=== PATIENT | female | born 1995 | race Caucasian/White ===

== ENCOUNTER 2017-03-14 14:53 | Emergency (ER) | payer OTHER, SELFPAY ==
[~2017-03-14] VITALS: Ht 177.8 cm; Wt 81.2 kg
[2017-03-14] MEDS ORDERED: [UNRECOGNIZED DRUG - OTHER] XX (16:44)
[2017-03-14 17:32] VITALS: BP 119/67
== END 2017-03-14 17:33 | disposition home or self-care (01) ==
LOC: M ED 16:31
DX: O99.89 Other specified diseases and conditions complicating pregnancy, childbirth and the puerperium (principal); M54.32 Sciatica, left side; Z76.0 Encounter for issue of repeat prescription; Z3A.27 27 weeks gestation of pregnancy

== ENCOUNTER 2017-05-10 09:17 | Outpatient (CLI) | payer OTHER ==
[~2017-05-10] VITALS: Ht 170.2 cm; Wt 99.0 kg
[~2017-05-10 09:17] MED LIST: [UNRECOGNIZED DRUG - OTHER] XX
[2017-05-10 09:32] VITALS: BP 139/80
[2017-05-10] MEDS ORDERED: PRENTAB9 PO (09:33)
[2017-05-10] MEDS ORDERED: VITA500C10 PO (09:35)
[2017-05-10] MEDS ORDERED: FERR325T3 PO (09:35)
[2017-05-10] MEDS ORDERED: LR 1,000 ML IV ONE (11:00)
[2017-05-10] MEDS ORDERED: LR 1,000 ML IV SCH (11:00)
[2017-05-10 11:21] VITALS: BP 165/85
[2017-05-10 11:23] VITALS: BP 134/69
[2017-05-10 11:32] LABS: BASO % 0.1 % (0.0-1.0); EOS % 0.3 % (0.0-3.0); LARGE UNSTAINED CELL # 0.1 K/mm3 (0.0-0.4); LARGE UNSTAINED CELL % 0.6 % (0.0-4.0); LYMPH # 1.1 K/mm3 (1.5-6.5); LYMPH % 10.8 % (24.0-44.0); MEAN CORPUSCULAR HEMOGLOBIN 33.6 pg (27.0-33.0); MEAN CORPUSCULAR HGB CONC 35.9 g/dl (32.0-36.5); MEAN CORPUSCULAR VOLUME 93.4 fl (80.0-96.0); MONO # 0.3 K/mm3 (0.0-0.8); MONO % 3.4 % (0.0-5.0); NEUTROPHILS # 8.2 K/mm3 (1.8-7.7); NEUTROPHILS % 84.7 % (36.0-66.0); PLATELET COUNT, AUTOMATED 198 k/mm3 (150-450); RED CELL DISTRIBUTION WIDTH 12.4 % (11.5-14.5); WHITE BLOOD COUNT 9.6 K/mm3 (4.0-10.0)
[2017-05-10 12:49] VITALS: BP 136/76
[2017-05-10] MEDS ORDERED: KEFL250C6 PO (12:50)
[2017-05-10] MEDS ORDERED: CEPHALEXIN 250 MG CAP PO SCH (13:00)
--- NOTE | 2017-05-10 13:18 | IPNPDOC ---
Text Note Date of Service The patient was seen on 05/10/17 1230. NOTE Subjective: Patient is a 21 year old female who is a who is 35.4 weeks gestation with an ALIREZA of 06/10/17 based off of a 2nd trimester ultrasound. Patient receives care in [place]. Her has been complicated by being late to care at 24 wks gestation. She presents to Labor and delivery today with complaints of bleeding. She was seen at [facility] last night for the same reason. She had an ultrasound last night that showed a closed cervix measuring 2.9 cm with no placental abruption. She received a dose of betamethasone and rhogam there. They diagnosed her with bacterial vaginitis and gave her Flagyl. Patient reports she has not picked up her antibiotic yet. She states that she had an episode of bleeding this morning that was red when she wiped that was thick and mixed with mucus. She denies any bright red vaginal bleeding currently but reports some pink discharge when she wipes. States that bleeding is not any heavier than it was last night. Bleeding occurred after intercourse. Reports decreased movement this morning. Currently denies this. Denies leaking fluid. Objective: FHR: 130, moderate variability, no decelerations, positive 15x15 accelerations. Contractions: occasional. Abdomen: gravid; palpates soft with no tenderness. Respiratory: regular rate. No use of accessory muscles. Extremities : generalized edema with no pitting. Vital signs: see below. Laboratory tests: see below. Assessment: IUP at 35.4 weeks gestation, post-coital bleeding in , not in labor, urinary tract infection Plan: Patient to be discharge to home. She received IV hydration while being in department and a dose of Ancef. Urine culture sent. Keflex sent to pharmacy. Patient to take 250 mg PO every 6 hours for 7 days. Encouraged to take prescribed medication for bacterial vaginitis. Saline lock to be removed. Encouraged pelvic rest at this point. Education done with patient to call provider with heavy bleeding like the first day of menses, decreased movement (less than 10 movements in 2 hours), leaking of fluid, or labor symptoms. Patient has appointment tomorrow in [place] with providers that she was encouraged to go to. Plan of care and laboratory tests reviewed with Dr. Jones. Sadie AYALA, I+O VS, Fishbone, I+O Laboratory Tests 05/10/17 11:18: White Blood Count 9.6, Red Blood Count 3.69L, Hemoglobin 12.4, Hematocrit 34.5L , Mean Corpuscular Volume 93.4, Mean Corpuscular Hemoglobin 33.6H, Mean Corpuscular Hemoglobin Concent 35.9, Red Cell Distribution Width 12.4, Platelet Count 198, Neutrophils (%) (Auto) 84.7H, Lymphocytes (%) (Auto) 10.8L, Monocytes (%) (Auto) 3.4, Eosinophils (%) (Auto) 0.3, Basophils (%) (Auto) 0.1, Neutrophils # (Auto) 8.2H, Lymphocytes # (Auto) 1.1L, Monocytes # (Auto) 0.3, Eosinophils # (Auto) 0.0, Basophils # (Auto) 0.0, Large Unclassified Cells % 0.6 , Large Unclassified Cells # 0.1, Urine Appearance HAZY, Urine Color YELLOW, Urine pH 5.0, Urine Specific [place] 1.017, Urine Protein NEGATIVE, Urine Glucose (UA) 1+H, Urine Ketones 2+H, Urine Urobilinogen 0.2, Urine Bilirubin NEGATIVE, Urine Leukocyte Esterase 2+H, Urine Blood 3+H, Urine Nitrite NEGATIVE, Urine WBC (Auto) 8H, Urine RBC (Auto) 2, Urine Hyaline Casts (Auto) 0, Urine Bacteria (Auto) NEGATIVE, Urine Squamous Epithelial Cells 10, Urine Mucus (Auto) SMALL, Urine Sperm (Auto) Microbiology 05/10/17 Urine Culture, Received Pending Laboratory Tests 05/10/17 11:18 Red Blood Count 3.69 L, Mean Corpuscular Volume 93.4, Mean Corpuscular Hemoglobin 33.6 H, Mean Corpuscular Hemoglobin Concent 35.9, Red Cell Distribution Width 12.4, Neutrophils (%) (Auto) 84.7 H, Lymphocytes (%) (Auto) 10.8 L, Monocytes (%) (Auto) 3.4, Eosinophils (%) (Auto) 0.3, Basophils (%) ( Auto) 0.1, Neutrophils # (Auto) 8.2 H, Lymphocytes # (Auto) 1.1 L, Monocytes # ( Auto) 0.3, Eosinophils # (Auto) 0.0, Basophils # (Auto) 0.0 Vital Signs Date Time Temp Pulse Resp B/P (MAP) Pulse Ox O2 Delivery O2 Flow Rate FiO2 05/10/17 11:23 102 18 134/69 (90) 05/10/17 09:32 97.9 MELVIN DEL ANGEL CNM May 10, 2017 13:18
== END 2017-05-10 13:05 | disposition home or self-care (01) ==
LOC: M LDO 09:17
PROVIDERS: ATTEND Obstetrics & Gynecology
DX: O26.853 Spotting complicating pregnancy, third trimester (principal); O23.43 Unspecified infection of urinary tract in pregnancy, third trimester; O09.293 Supervision of pregnancy with other poor reproductive or obstetric history, third trimester; Z3A.35 35 weeks gestation of pregnancy
CPT/HCPCS: 59025; 81001; 85025; 87088; 87186; 96365; 96366; J0690

== ENCOUNTER 2018-04-08 17:41 | Emergency (ER) | payer OTHER, SELFPAY ==
[2018-04-08] MEDS: ADACEL/BOOSTRIX VACCINE (DIPHTH/PERTUSS/ACELL/TETANUS)0.5ML SYR (90715) IM ×2 (18:58)
[2018-04-08] MEDS: LIDOCAINE 2% MDV 20 ML VIAL SC ×2 (19:56)
== END 2018-04-08 21:05 | disposition home or self-care (01) ==
LOC: M ED 17:41
DX: S91.111A Laceration without foreign body of right great toe without damage to nail, initial encounter (principal); S92.421A Displaced fracture of distal phalanx of right great toe, initial encounter for closed fracture; W28.XXXA Contact with powered lawn mower, initial encounter; Y92.009 Unspecified place in unspecified non-institutional (private) residence as the place of occurrence of the external cause; Z91.040 Latex allergy status
CPT/HCPCS: 90715

== ENCOUNTER → 2019-11-01 | Outpatient (CLI) | payer OTHER ==
[~2019-11-01] MED LIST changes: +ACET-716 PO; +AUGM500T34 PO; +FERR325T3 PO; +KEFL250C11 PO; +PRENTAB9 PO; +VITA500C10 PO
--- NOTE | 2019-11-01 17:16 | REP ---
DIAGNOSTIC MAMMOGRAM RIGHT BREAST WITH RIGHT BREAST ULTRASOUND: No family history of breast cancer. Tyrer-zick lifetime risk of breast cancer 9.8%. HISTORY: Palpable lump 12 o'clock right breast. No comparison study. The palpable lump is marked on the skin with a triangular marker. Mammography of the right breast is performed in the MLO, ML and CC projections. There is moderately dense heterogenous fibroglandular tissue present in the right breast. No mass or clustered microcalcifications are seen. Real-time sonographic evaluation of the right breast was performed at the site of the palpable lump at 12 o'clock. At this location there is a superficial subcutaneous hypoechoic area measuring 7 x 3 x 7 mm. Skin discoloration is noted at this location. IMPRESSION: ACR 3 probably benign. At the site of the palpable lump in the region of 12 to 1 o'clock right breast no mammographic abnormality is seen. By ultrasound there is a superficial oval hypoechoic nodule with enhanced through transmission probably representing a sebaceous cyst with a maximum diameter of 7 mm. There is overlying skin discoloration. Recommend followup ultrasound in 6 months. BIRADS 3: BI-RADS/ACR category 3 mammogram. Probably Benign Findings. This mammogram was interpreted with the aid of an FDA-approved computer-aided detection system. The patient states she had a clinical breast exam in 10/2019. The patient letter being requested is M3. Electronically Signed by Kashif Graham MD 11/01/2019 06:13 P
== END ==
LOC: M RAD 14:17
PROVIDERS: ATTEND Family Medicine
DX: R22.9 Localized swelling, mass and lump, unspecified (principal)

== ENCOUNTER 2019-11-28 22:10 | Emergency (ER) | payer OTHER ==
[~2019-11-28] VITALS: Ht 175.3 cm; Wt 88.0 kg
[2019-11-28] MEDS ORDERED: ACETAMINOPHEN 325 MG TAB PO ONE (22:30)
[2019-11-28 23:11] LABS: INFLUENZA A AMPLIFICATION NEGATIVE (NEGATIVE); INFLUENZA B AMPLIFICATION POSITIVE (NEGATIVE)
[2019-11-28] MEDS ORDERED: OSEL75CA PO (23:37)
[2019-11-28] MEDS ORDERED: BENZ200C70 PO (23:40)
[2019-11-28] MEDS ORDERED: OSELTAMIVIR PHOSPHATE 75 MG CAP (TAMIFLU) PO ONE (23:45)
[2019-11-29 00:01] VITALS: BP 128/68
== END 2019-11-29 00:03 | disposition home or self-care (01) ==
LOC: M ED 22:10
DX: J10.1 Influenza due to other identified influenza virus with other respiratory manifestations (principal); Z91.040 Latex allergy status

== ENCOUNTER → 2020-10-13 | Outpatient (CLI) | payer SELFPAY ==
[~2020-10-13] MED LIST changes: +BENZ200C70 PO; +OSEL75CA PO
== END ==
LOC: M LABSMTC 11:20
PROVIDERS: ATTEND Pediatrics
DX: Z20.828 Contact with and (suspected) exposure to other viral communicable diseases (principal)

== ENCOUNTER → 2020-11-20 | Outpatient (CLI) | payer SELFPAY | LOC: M LABSMTC 13:49 | PROVIDERS: ATTEND Pediatrics | DX: Z20.828 Contact with and (suspected) exposure to other viral communicable diseases (principal) ==

== ENCOUNTER → 2022-03-26 | Outpatient (REF) | LOC: M LABSMTC 10:42 | PROVIDERS: ATTEND Family Medicine | DX: Z11.52 Encounter for screening for COVID-19 (principal); Z20.822 Contact with and (suspected) exposure to COVID-19 ==

== ENCOUNTER 2022-10-17 17:38 | Emergency (ER) | payer OTHER, SELFPAY ==
[~2022-10-17] VITALS: Ht 177.8 cm; Wt 75.3 kg
[2022-10-17 19:17] LABS: BASO % 0.3 % (0.0-1.0); EOS # 0.1 10^3/uL (0.0-0.5); HEMATOCRIT 39.1 % (36.0-47.0); HEMOGLOBIN 13.3 g/dl (12.0-15.5); LYMPH # 2.5 10^3/uL (1.5-5.0); LYMPH % 36.7 % (24.0-44.0); MEAN CORPUSCULAR HEMOGLOBIN 31.3 pg (27.0-33.0); MONO # 0.3 10^3/uL (0.0-0.8); NEUTROPHILS # 3.9 10^3/uL (1.5-8.5); NEUTROPHILS % 57.9 % (36.0-66.0); PLATELET COUNT, AUTOMATED 226 10^3/uL (150-450); RED BLOOD COUNT 4.25 10^6/uL (4.00-5.40); WHITE BLOOD COUNT 6.7 10^3/uL (4.0-10.0)
[2022-10-17 19:30] LABS: HCG, SERUM QUALITATIVE NEGATIVE (NEGATIVE)
[2022-10-17 20:16] LABS: ALBUMIN 4.2 G/DL (3.2-5.2); ALT/SGPT 18 U/L (7.0-40); BILIRUBIN,TOTAL 0.3 MG/DL (0.3-1.2); BLOOD UREA NITROGEN 15 MG/DL (9-23); CALCIUM LEVEL 8.6 MG/DL (8.5-10.1); CARBON DIOXIDE LEVEL 28 MMOL/L (20-31); CHLORIDE LEVEL 107 MMOL/L (98-107); CREATININE FOR GFR 0.81 MG/DL (0.55-1.30); GLOMERULAR FILTRATION RATE > 60.0 (>60); GLUCOSE, FASTING 93 MG/DL (60-100); HEPATITIS B SURFACE ANTIBODY NEGATIVE (POSITIVE); HEPATITIS B SURFACE ANTIGEN NEGATIVE (NEGATIVE); HEPATITIS C VIRUS ABY INDEX 0.1 INDEX (<0.8); HIV 1&2 SCREEN CENTAUR NEGATIVE (NEGATIVE); POTASSIUM SERUM 4.1 MMOL/L (3.5-5.1); SODIUM LEVEL 142 MMOL/L (136-145); TOTAL PROTEIN 6.6 G/DL (5.7-8.2)
[2022-10-17] MEDS ORDERED: EXPOSURE KIT-ADULT 7 DAY SUPPLY PO ONE (20:30)
[2022-10-17] MEDS ORDERED: EMTR1TAB16 PO (20:37)
[2022-10-17] MEDS ORDERED: RALT40TA PO (20:37)
[2022-10-17 21:19] VITALS: BP 122/62
[2022-10-17] MEDS ORDERED: RALTEGRAVIR 400 MG TAB (ISENTRESS) PO ONE (22:00)
[2022-10-17] MEDS ORDERED: TRUVADA 200MG/300MG TABLET PO ONE (22:00)
[2022-10-18] MEDS ORDERED: RALTEGRAVIR 400 MG TAB (ISENTRESS) PO SCH
[2022-10-18] MEDS ORDERED: TRUVADA 200MG/300MG TABLET PO SCH
== END 2022-10-17 21:20 | disposition home or self-care (01) ==
LOC: M ED 17:38
DX: S71.131A Puncture wound without foreign body, right thigh, initial encounter (principal); Z77.21 Contact with and (suspected) exposure to potentially hazardous body fluids; W46.1XXA Contact with contaminated hypodermic needle, initial encounter; Y92.009 Unspecified place in unspecified non-institutional (private) residence as the place of occurrence of the external cause; Z91.040 Latex allergy status

== ENCOUNTER → 2023-12-21 | Outpatient (REF) | payer SELFPAY, OTHER ==
[~2023-12-21] MED LIST changes: +EMTR1TAB16 PO; +RALT40TA PO
[2023-12-21 17:59] LABS: BASO % 0.6 % (0.0-1.0); EOS # 0.1 10^3/uL (0.0-0.5); EOS % 1.4 % (0.0-3.0); HEMATOCRIT 39.3 % (36.0-47.0); HEMOGLOBIN 13.5 g/dl (12.0-15.5); LYMPH # 1.4 10^3/uL (1.5-5.0); LYMPH % 39.3 % (24.0-44.0); MEAN CORPUSCULAR HEMOGLOBIN 31.4 pg (27.0-33.0); MEAN CORPUSCULAR HGB CONC 34.4 g/dl (32.0-36.5); MEAN CORPUSCULAR VOLUME 91.4 fl (80.0-96.0); MONO # 0.2 10^3/uL (0.0-0.8); MONO % 5.3 % (2.0-8.0); NEUTROPHILS # 1.9 10^3/uL (1.5-8.5); NEUTROPHILS % 53.1 % (36.0-66.0); PLATELET COUNT, AUTOMATED 222 10^3/uL (150-450); WHITE BLOOD COUNT 3.6 10^3/uL (4.0-10.0)
[2023-12-21 18:07] LABS: HEMOGLOBIN A1c 4.6 % (4.0-6.0)
[2023-12-21 18:19] LABS: ALBUMIN 3.9 G/DL (3.2-5.2); ALKALINE PHOSPHATASE 31 U/L (46-116); ALT/SGPT 26 U/L (7.0-40); AST/SGOT 17 U/L (<34); BILIRUBIN,TOTAL 0.3 MG/DL (0.3-1.2); BLOOD UREA NITROGEN 10 MG/DL (9-23); CALCIUM LEVEL 8.4 MG/DL (8.5-10.1); CARBON DIOXIDE LEVEL 30 MMOL/L (20-31); CHLORIDE LEVEL 109 MMOL/L (98-107); CREATININE FOR GFR 0.75 MG/DL (0.55-1.30); GLOMERULAR FILTRATION RATE > 60.0 (>60); GLUCOSE, FASTING 105 MG/DL (60-100); MAGNESIUM LEVEL 1.9 MG/DL (1.8-2.4); POTASSIUM SERUM 4.4 MMOL/L (3.5-5.1); SODIUM LEVEL 143 MMOL/L (136-145); TOTAL PROTEIN 6.6 G/DL (5.7-8.2)
[2023-12-21 18:23] LABS: THYROID STIMULATING HORMONE 3.156 uIU/ML (0.55-4.78)
[2023-12-21 18:48] LABS: HIV 1&2 SCREEN NEGATIVE (NEGATIVE)
[2023-12-21 18:55] LABS: HEPATITIS C VIRUS ABY INDEX 0.02 INDEX (<0.8)
== END ==
LOC: M LAB REF 16:34
PROVIDERS: ATTEND Physician Assistant
DX: E66.3 Overweight (principal); E55.9 Vitamin D deficiency, unspecified; R53.83 Other fatigue; Z11.9 Encounter for screening for infectious and parasitic diseases, unspecified

== ENCOUNTER → 2024-02-02 | Outpatient (REF) | payer SELFPAY, OTHER ==
[2024-02-02 17:09] LABS: BASO % 0.3 % (0.0-1.0); EOS % 0.8 % (0.0-3.0); HEMATOCRIT 37.9 % (36.0-47.0); HEMOGLOBIN 13.1 g/dl (12.0-15.5); LYMPH # 1.6 10^3/uL (1.5-5.0); LYMPH % 40.2 % (24.0-44.0); MEAN CORPUSCULAR HEMOGLOBIN 31.1 pg (27.0-33.0); MEAN CORPUSCULAR HGB CONC 34.6 g/dl (32.0-36.5); MONO # 0.2 10^3/uL (0.0-0.8); MONO % 5.9 % (2.0-8.0); NEUTROPHILS # 2.1 10^3/uL (1.5-8.5); NEUTROPHILS % 52.5 % (36.0-66.0); PLATELET COUNT, AUTOMATED 212 10^3/uL (150-450); RED BLOOD COUNT 4.21 10^6/uL (4.00-5.40); WHITE BLOOD COUNT 3.9 10^3/uL (4.0-10.0)
== END ==
LOC: M LAB REF 16:27
PROVIDERS: ATTEND Physician Assistant
DX: D72.819 Decreased white blood cell count, unspecified (principal)

== ENCOUNTER → 2024-02-07 | Outpatient (REF) | payer OTHER | LOC: M LAB REF 19:13 | PROVIDERS: ATTEND Physician Assistant | DX: R53.83 Other fatigue (principal) ==

== ENCOUNTER → 2024-02-07 | Outpatient (REF) | payer OTHER ==
[2024-02-07 19:37] LABS: BASO % 0.2 % (0.0-1.0); EOS # 0.1 10^3/uL (0.0-0.5); EOS % 1.2 % (0.0-3.0); HEMOGLOBIN 13.9 g/dl (12.0-15.5); LYMPH # 1.6 10^3/uL (1.5-5.0); LYMPH % 38.5 % (24.0-44.0); MEAN CORPUSCULAR HEMOGLOBIN 30.2 pg (27.0-33.0); MEAN CORPUSCULAR HGB CONC 33.1 g/dl (32.0-36.5); MEAN CORPUSCULAR VOLUME 91.1 fl (80.0-96.0); MONO # 0.2 10^3/uL (0.0-0.8); MONO % 5.3 % (2.0-8.0); NEUTROPHILS # 2.3 10^3/uL (1.5-8.5); NEUTROPHILS % 54.8 % (36.0-66.0); PLATELET COUNT, AUTOMATED 225 10^3/uL (150-450); RED BLOOD COUNT 4.61 10^6/uL (4.00-5.40); WHITE BLOOD COUNT 4.2 10^3/uL (4.0-10.0)
[2024-02-07 20:06] LABS: C REACTIVE PROTEIN QUANTITATIV < 0.40 MG/DL (<1.0); ERYTHROCYTE SEDIMENTATION RATE 1 mm/hr (0-20)
[2024-02-07 20:09] LABS: RHEUMATOID FACTOR QUANT 9.8 IU/ML (<14)
== END ==
LOC: M LAB REF 19:17
PROVIDERS: ATTEND Physician Assistant
DX: R53.83 Other fatigue (principal)

== ENCOUNTER → 2024-08-20 | Outpatient (CLI) | payer OTHER ==
[2024-08-20 15:21] LABS: HEMATOCRIT 34.5 % (36.0-47.0); HEMOGLOBIN 11.6 g/dl (12.0-15.5); RED BLOOD COUNT 4.01 10^6/uL (4.00-5.40); WHITE BLOOD COUNT 5.8 10^3/uL (4.0-10.0)
[2024-08-20 15:22] LABS: MEAN CORPUSCULAR HEMOGLOBIN 28.9 pg (27.0-33.0); MEAN CORPUSCULAR HGB CONC 33.6 g/dl (32.0-36.5); PLATELET COUNT, AUTOMATED 180 10^3/uL (150-450)
[2024-08-20 15:51] LABS: HIV 1&2 SCREEN NEGATIVE (NEGATIVE)
[2024-08-20 15:59] LABS: HEPATITIS C VIRUS ABY INDEX < 0.02 INDEX (<0.8)
[2024-08-20 16:41] LABS: GC DNA AMPLIFICATION NEGATIVE (NEGATIVE)
== END ==
LOC: M PLALAB 13:09
PROVIDERS: ATTEND Advanced Practice Midwife
DX: Z34.81 Encounter for supervision of other normal pregnancy, first trimester (principal)

== ENCOUNTER → 2024-09-03 | Outpatient (CLI) | payer OTHER ==
[2024-09-03 15:14] LABS: HEMATOCRIT 36.9 % (36.0-47.0); HEMOGLOBIN 12.7 g/dl (12.0-15.5); MEAN CORPUSCULAR HGB CONC 34.4 g/dl (32.0-36.5); MEAN CORPUSCULAR VOLUME 87.2 fl (80.0-96.0); PLATELET COUNT, AUTOMATED 194 10^3/uL (150-450); RED BLOOD COUNT 4.23 10^6/uL (4.00-5.40); WHITE BLOOD COUNT 7.1 10^3/uL (4.0-10.0)
[2024-09-03 15:46] LABS: ALBUMIN 3.4 G/DL (3.2-5.2); ALKALINE PHOSPHATASE 53 U/L (46-116); ALT/SGPT 22 U/L (7.0-40); AST/SGOT 14 U/L (<34); BILIRUBIN,TOTAL 0.3 MG/DL (0.3-1.2); BLOOD UREA NITROGEN 9 MG/DL (9-23); CALCIUM LEVEL 9.8 MG/DL (8.5-10.1); CARBON DIOXIDE LEVEL 27 MMOL/L (20-31); CHLORIDE LEVEL 104 MMOL/L (98-107); CREATININE FOR GFR 0.54 MG/DL (0.55-1.30); GLOMERULAR FILTRATION RATE > 60.0 (>60); GLUCOSE, FASTING 88 MG/DL (60-100); POTASSIUM SERUM 3.9 MMOL/L (3.5-5.1); SODIUM LEVEL 139 MMOL/L (136-145); TOTAL PROTEIN 6.7 G/DL (5.7-8.2)
[2024-09-03 15:47] LABS: CREATININE,RANDOM URINE 54.8 MG/DL
[2024-09-03 15:49] LABS: TOTAL PROTEIN,RANDOM URINE < 6.0 MG/DL (0.0-14.0)
== END ==
LOC: M PLALAB 12:24
PROVIDERS: ATTEND Obstetrics & Gynecology
DX: O16.2 Unspecified maternal hypertension, second trimester (principal)

== ENCOUNTER 2024-09-07 23:05 | Emergency (ER) | payer OTHER ==
[~2024-09-07] VITALS: Ht 177.8 cm; Wt 88.9 kg
[2024-09-07 23:27] LABS: BASO % 0.2 % (0.0-1.0); EOS # 0.1 10^3/uL (0.0-0.5); HEMATOCRIT 33.5 % (36.0-47.0); HEMOGLOBIN 11.7 g/dl (12.0-15.5); LYMPH # 1.3 10^3/uL (1.5-5.0); LYMPH % 21.6 % (24.0-44.0); MEAN CORPUSCULAR HEMOGLOBIN 30.2 pg (27.0-33.0); MEAN CORPUSCULAR HGB CONC 34.9 g/dl (32.0-36.5); MEAN CORPUSCULAR VOLUME 86.3 fl (80.0-96.0); MONO # 0.4 10^3/uL (0.0-0.8); MONO % 6.8 % (2.0-8.0); NEUTROPHILS # 4.1 10^3/uL (1.5-8.5); NEUTROPHILS % 69.9 % (36.0-66.0); PLATELET COUNT, AUTOMATED 171 10^3/uL (150-450); RED BLOOD COUNT 3.88 10^6/uL (4.00-5.40); WHITE BLOOD COUNT 5.9 10^3/uL (4.0-10.0)
[2024-09-07 23:56] LABS: BLOOD UREA NITROGEN 8 MG/DL (9-23); CALCIUM LEVEL 8.8 MG/DL (8.5-10.1); CARBON DIOXIDE LEVEL 23 MMOL/L (20-31); CHLORIDE LEVEL 109 MMOL/L (98-107); CREATININE FOR GFR 0.48 MG/DL (0.55-1.30); GLOMERULAR FILTRATION RATE > 60.0 (>60); GLUCOSE, FASTING 91 MG/DL (60-100); POTASSIUM SERUM 3.8 MMOL/L (3.5-5.1); SODIUM LEVEL 138 MMOL/L (136-145)
[2024-09-08 00:08] LABS: HCG, SERUM QUANTITATIVE 33855.9 MIU/ML (<4.2)
[2024-09-08 04:58] VITALS: BP 135/68; TEMP 97.8; O2SAT 99
== END 2024-09-08 05:11 | disposition home or self-care (01) ==
LOC: M ED 23:05
DX: O26.852 Spotting complicating pregnancy, second trimester (principal); Z3A.14 14 weeks gestation of pregnancy; Z91.040 Latex allergy status; Z79.899 Other long term (current) drug therapy

== ENCOUNTER → 2024-09-18 | Outpatient (CLI) | payer OTHER | LOC: M PLALAB 13:01 | PROVIDERS: ATTEND Obstetrics & Gynecology | DX: Z36.89 Encounter for other specified antenatal screening (principal) ==

== ENCOUNTER → 2024-10-22 | Outpatient (CLI) | payer OTHER | LOC: M WHC 10:33 | PROVIDERS: ATTEND Obstetrics & Gynecology | DX: Z34.92 Encounter for supervision of normal pregnancy, unspecified, second trimester (principal) ==

== ENCOUNTER → 2024-11-09 | Outpatient (CLI) | payer OTHER | LOC: M RAD 06:36 | PROVIDERS: ATTEND Nurse Practitioner Family | DX: O44.02 Complete placenta previa NOS or without hemorrhage, second trimester (principal); Z3A.23 23 weeks gestation of pregnancy ==

== ENCOUNTER → 2024-12-03 | Outpatient (REF) | payer OTHER | LOC: M PLALAB 10:28 | PROVIDERS: ATTEND Nurse Practitioner Family | DX: Z53.9 Procedure and treatment not carried out, unspecified reason (principal) ==

== ENCOUNTER → 2024-12-08 | Outpatient (REF) | payer OTHER | LOC: M LAB REF 18:44 | PROVIDERS: ATTEND Physician Assistant | DX: R05.9 Cough, unspecified (principal) ==

== ENCOUNTER → 2024-12-28 | Outpatient (CLI) | payer OTHER ==
[2024-12-28 14:37] LABS: GLUCOSE CHALLENGE TEST 1 HOUR 97 MG/DL (LESS THAN 140)
[2024-12-28 14:41] LABS: HEMATOCRIT 37.6 % (36.0-47.0); HEMOGLOBIN 12.8 g/dl (12.0-15.5); MEAN CORPUSCULAR HEMOGLOBIN 32.5 pg (27.0-33.0); MEAN CORPUSCULAR VOLUME 95.4 fl (80.0-96.0); PLATELET COUNT, AUTOMATED 182 10^3/uL (150-450); RED BLOOD COUNT 3.94 10^6/uL (4.00-5.40); WHITE BLOOD COUNT 7.1 10^3/uL (4.0-10.0)
[2024-12-28 15:07] LABS: HIV 1&2 SCREEN NEGATIVE (NEGATIVE)
[2024-12-28 15:15] LABS: HEPATITIS C VIRUS ABY INDEX < 0.02 INDEX (<0.8)
[2024-12-28 16:03] LABS: GC DNA AMPLIFICATION NEGATIVE (NEGATIVE)
== END ==
LOC: M PLALAB 09:49
PROVIDERS: ATTEND Nurse Practitioner Family
DX: Z34.82 Encounter for supervision of other normal pregnancy, second trimester (principal)

== ENCOUNTER → 2025-01-18 | Outpatient (CLI) | payer OTHER | LOC: M WHC 07:16 | PROVIDERS: ATTEND Nurse Practitioner Family | DX: O26.843 Uterine size-date discrepancy, third trimester (principal); Z3A.33 33 weeks gestation of pregnancy ==

== ENCOUNTER → 2025-01-31 | Outpatient (REF) | payer OTHER | LOC: M SFHCWAGY 10:09 | PROVIDERS: ATTEND Nurse Practitioner Family | DX: N89.8 Other specified noninflammatory disorders of vagina (principal) ==

== ENCOUNTER → 2025-02-12 | Outpatient (CLI) | payer OTHER | LOC: M WHC 13:09 | PROVIDERS: ATTEND Nurse Practitioner Family | DX: O36.60X0 Maternal care for excessive fetal growth, unspecified trimester, not applicable or unspecified (principal); Z3A.36 36 weeks gestation of pregnancy ==

== ENCOUNTER → 2025-02-14 | Outpatient (REF) | payer OTHER | LOC: M PLALAB 15:08 | PROVIDERS: ATTEND Nurse Practitioner Family | DX: Z3A.36 36 weeks gestation of pregnancy (principal) ==

== ENCOUNTER 2025-03-02 13:35 | Inpatient (IN) | payer OTHER ==
[~2025-03-02] VITALS: Ht 175.3 cm; Wt 103.7 kg
[2025-03-02] VITALS (7 sets, daily range): BP systolic 117–141; BP diastolic 70–77
[2025-03-02] MEDS ORDERED: TUMS750C5 PO (13:50)
[2025-03-02] MEDS ORDERED: HOME MED LIST COMPLETE! XX SCH (13:50)
[2025-03-02] MEDS ORDERED: METHYLERGONOVINE MALEATE 0.2MG/ML 1ML VIAL IM PRN (14:00)
[2025-03-02] MEDS ORDERED: TRANEXAMIC ACID INJection 1,000 MG in NS 100 ML IV PRN (14:00)
[2025-03-02] MEDS ORDERED: LIDOCAINE 1% MDV 20ML VIAL INFIL PRN (14:00)
[2025-03-02] MEDS ORDERED: CARBOPROST TROMETHAMINE 250 MCG/ML AMP IM PRN (14:00)
[2025-03-02] MEDS: miSOPROStol 50MCG 1/2 TABLET PO SCH (14:47)
[2025-03-02 15:37] LABS: HEMATOCRIT 35.5 % (36.0-47.0); HEMOGLOBIN 12.4 g/dl (12.0-15.5); MEAN CORPUSCULAR HEMOGLOBIN 32.4 pg (27.0-33.0); MEAN CORPUSCULAR HGB CONC 34.9 g/dl (32.0-36.5); MEAN CORPUSCULAR VOLUME 92.7 fl (80.0-96.0); PLATELET COUNT, AUTOMATED 175 10^3/uL (150-450); RED BLOOD COUNT 3.83 10^6/uL (4.00-5.40)
[2025-03-02 16:43] LABS: HIV 1&2 SCREEN NEGATIVE (NEGATIVE)
[2025-03-02 16:50] LABS: HEPATITIS C VIRUS ABY INDEX 0.02 INDEX (<0.8)
[2025-03-03] VITALS (16 sets, daily range): BP systolic 117–152; BP diastolic 61–84; O2SAT 97
[2025-03-03] MEDS: OXYTOCIN DRIP 30 UNITS in IV 1 EA IV SCH ×3 (00:38→10:17)
[2025-03-03] MEDS: LR 1,000 ML IV SCH (00:39)
[2025-03-03 07:14] LABS: CORD GAS ABE A -13.9; CORD GAS HCO3 A 19.8 MMOL/L; CORD GAS O2 SAT A 31.4 %; CORD GAS PCO2 A 88.9 mmHg; CORD GAS PO2 A 23.1 mmHg; CORD GAS SBC A 12.7 MMOL/L; CORD GAS TCO2 A 22.5 MMOL/L
[2025-03-03 07:16] LABS: CORD GAS ABE V -13.3; CORD GAS HCO3 V 18.2 MMOL/L; CORD GAS PCO2 V 67.3 mmHg; CORD GAS PH V 7.049 UNITS; CORD GAS PO2 V 22.8 mmHg; CORD GAS SBC V 13.2 MMOL/L; CORD GAS TCO2 V 20.2 MMOL/L
[2025-03-03 07:18] LABS: CORD GAS PH A 6.966 UNITS
[2025-03-03] MEDS: OXYTOCIN DRIP 30 UNITS in IV 1 EA IV PRN (07:30)
[2025-03-03] MEDS ORDERED: DOCUSATE SODIUM 100MG CAPSULE PO PRN (08:00)
[2025-03-03] MEDS ORDERED: CALCIUM CARBONATE 500 MG CHEW U/D PO PRN (08:00)
[2025-03-03] MEDS ORDERED: ACETAMINOPHEN 500 MG TAB PO PRN (08:00)
[2025-03-03] MEDS ORDERED: ACETAMINOPHEN 325 MG TAB PO PRN (08:00)
[2025-03-03] MEDS ORDERED: IBUPROFEN 600MG TAB PO PRN (08:00)
[2025-03-03] MEDS ORDERED: METHYLERGONOVINE MALEATE 0.2 MG TAB PO PRN (08:00)
[2025-03-03] MEDS ORDERED: MOM 30ML SUSPENSION UDC PO PRN (08:00)
[2025-03-03] MEDS: IBUPROFEN 800 MG TAB PO PRN (08:09)
[2025-03-03] MEDS: DIBUCAINE 1% OINTMENT 30GM TOP PRN (08:42)
[2025-03-03] MEDS: PRENATAL VITAMINS CHEWABLE TABLET PO SCH (10:18)
[2025-03-03] MEDS: RHOGAM 300MCG (1500IU) INJ IM SCH (15:25)
[2025-03-04 06:00] VITALS: BP 131/69; O2SAT 97
[2025-03-04 18:00] VITALS: BP 142/82; O2SAT 95
[2025-03-05 06:00] VITALS: BP 139/80; O2SAT 98
[2025-03-05] MEDS: MEASLES,MUMPS,RUBELLA VACCINE INJ (MMR-II) SC.IMMUN ONE (10:25)
== END 2025-03-05 16:05 | disposition home or self-care (01) | DRG 560 ==
LOC: M LDI 13:35 → M OBS 03-03 09:45
PROVIDERS: ADMIT Obstetrics & Gynecology; ATTEND Obstetrics & Gynecology
PROC: 3E033VJ Introduction of Other Hormone into Peripheral Vein, Percutaneous Approach (ICD-10-PCS; 2025-03-02)
PROC: 10E0XZZ Delivery of Products of Conception, External Approach (ICD-10-PCS; principal; 2025-03-03)
DX: O76 Abnormality in fetal heart rate and rhythm complicating labor and delivery (principal); Z37.0 Single live birth; Z3A.39 39 weeks gestation of pregnancy